=== PATIENT | female | born 1970 | race American Indian/Alaskan Native ===

== ENCOUNTER 2017-01-03 00:10 | Emergency (ER) | payer SELFPAY ==
--- NOTE | 2017-01-03 01:57 | XRay Report ---
FINAL REPORT PROCEDURE: XR ANKLE 2V RT TECHNIQUE: RIGHT ankle radiographs, AP and lateral views. HISTORY: fall, ankle pain COMPARISON: No prior studies are available for comparison. FINDINGS: Fracture (s) and/or Dislocation(s): None. Alignment: Normal. Joint space(s): Normal. Soft tissues: Normal. Bone mineralization: Normal. Foreign bodies: Normal. Calcaneal spurring: Large inferior spur IMPRESSION: No evidence of acute fracture or dislocation.
--- NOTE | 2017-01-03 01:58 | XRay Report ---
FINAL REPORT PROCEDURE: XR KNEE 1-2V RT TECHNIQUE: RIGHT knee radiographs, AP, lateral and oblique views. CPT 26977 HISTORY: fall COMPARISON: No prior studies are available for comparison. FINDINGS: Fracture (s) and/or Dislocation(s): None . Alignment: Normal . Joint space(s): Normal . Soft tissues: Normal . Bone mineralization: Normal . Foreign bodies: None . IMPRESSION: No evidence of an acute fracture or dislocation.
--- NOTE | 2017-01-03 01:59 | XRay Report ---
FINAL REPORT PROCEDURE: XR SHOULDER 1V RT TECHNIQUE: RIGHT shoulder radiograph, single frontal view. HISTORY: fall COMPARISON: No prior studies are available for comparison. FINDINGS: Fracture(s): None. Joint space(s): There is mild spur formation the acromioclavicular joint Soft tissues: Normal. Bone mineralization: Normal. Foreign bodies: None. IMPRESSION: No evidence of an acute fracture or dislocation. Mild arthritis
[2017-01-03] MEDS ORDERED: TORADOL IM ONE (03:21)
--- NOTE | 2017-01-03 03:27 | Emergency Department Report ---
HPI - General Chief Complaint: Fall Time Seen by Provider: 01/03/17 03:12 - HPI HPI: This is a 46-year-old female with no prior medical condition presents to ED complaining of right shoulder pain times today. Patient states she was walking down steps when she tripped and fell. Patient states she does not recall here her shoulder but it hurts. Patient describes pain as localized to her back shoulder region with known radiation elsewhere, throbbing in nature, 6 out of 10 intensity. Denies any head injury, loss of consciousness ED Past Medical Hx - Past Medical History Previous Medical History?: No - Surgical History Past Surgical History?: No - Social History Smoking Status: Never Smoker Substance Use Type: None - Medications Home Medications: Home Medications Medication Instructions Recorded Confirmed Last Taken Type Sulfamethoxazole/Trimethoprim 1 each PO BID #14 tablet 02/06/16 Unknown Rx [Bactrim DS TAB] Cyclobenzaprine [Flexeril] 10 mg PO QHS PRN #24 tablet 01/03/17 Unknown Rx Diclofenac Sodium 75 mg PO BID #14 tablet. 01/03/17 Unknown Rx ED Review of Systems ROS: Stated complaint: FALL/BODY PAIN Other details as noted in HPI Constitutional: denies: chills, fever Eyes: denies: eye pain, eye discharge, vision change ENT: denies: ear pain, throat pain, congestion Respiratory: denies: cough, shortness of breath, wheezing Cardiovascular: denies: chest pain, palpitations Endocrine: no symptoms reported Gastrointestinal: denies: abdominal pain, nausea, vomiting, diarrhea Genitourinary: denies: urgency, dysuria, discharge Musculoskeletal: denies: back pain, joint swelling, arthralgia Skin: denies: rash, lesions Neurological: denies: headache, weakness, paresthesias Psychiatric: denies: anxiety, depression Hematological/Lymphatic: denies: easy bleeding, easy bruising Physical Exam - Physical Exam Vital Signs: Vital Signs 01/03/17 00:56 Temperature 98.4 F Pulse Rate 81 Respiratory 18 Rate Blood Pressure 155/96 Blood Pressure 155/96 [Left] O2 Sat by Pulse 99 Oximetry Physical Exam: GENERAL: Alert and oriented x3, no apparent distress, Normal Gait, atraumatic. HEAD: Head is normocephalic and a-traumatic. NECK: Supple. Non edematous, No carotid bruits. No lymphadenopathy or thyromegaly. No C-spine tenderness LUNGS: Symetrical with respiration, No wheezing, no rales or crackles, CTAB. HEART: S1, S2 present, regular rate and rhythm without murmur, no rubs, no gallops. Non tender to palpation ABDOMEN: No organomegaly was noted,Positive bowel sounds, soft, and non- distended. . Nontender to palpation on all Quadrants, NO CVA tenderness. BACK: Full range of motion, no spinal tenderness, nontender to palpation. EXTREMITIES/MUSCULOSKELETAL: No cyanosis, clubbing, rash, lesions or edema. Full ROM bilaterally. UE/LE Pulses 2+ bilaterally. LE and UE 5+ strength bilaterally, all joints are intact bilaterally. Tenderness to palpation of the shoulder back muscles. Patient able to extend and flex right arm. No deformity seen NEUROLOGIC: The patient is cooperative with no focal neurologic deficits. Cranial nerves II through XII are grossly intact. Normal speech. Normal sensation in bilateral upper and lower extremities, No loss of sensation, No facial droop, Negative rhomberg. PSYCHIATRIC: Mood is congruent with affect, denies suicidal or homicidal ideations. SKIN: Warm and dry, No lesions, No ulceration or induration present. ED Course Vital Signs 01/03/17 00:56 Temperature 98.4 F Pulse Rate 81 Respiratory 18 Rate Blood Pressure 155/96 Blood Pressure 155/96 [Left] O2 Sat by Pulse 99 Oximetry ED Medical Decision Making - Medical Decision Making 46-year-old female presents to ED with myalgia of the is status post fall ED course: Patient received Toradol in ED. Vital signs are normal patient is in no acute distress Discussed with patient follow-up with primary care physician. Discussed the patient and take medications as prescribed. Patient has no neurological deficit. Patient is alert and oriented 3 and understands all instructions given. Discussed drowsiness effect of Flexeril makes her drowsy and not to operate machinery while taking flexeril Critical care attestation.: If time is entered above; I have spent that time in minutes in the direct care of this critically ill patient, excluding procedure time. ED Disposition Clinical Impression: Myalgia Shoulder arthralgia Qualifiers: Laterality: right Qualified Code(s): M25.511 - Pain in right shoulder Disposition: - TO HOME OR SELFCARE Is pt being admited?: No Does the pt Need Aspirin: No Condition: Stable Instructions: Musculoskeletal Pain (ED), Trigger Point Pain (ED) Prescriptions: Cyclobenzaprine [Flexeril] 10 mg PO QHS PRN #24 tablet PRN Reason: Muscle Spasm Diclofenac Sodium 75 mg PO BID #14 tablet. Referrals: PRIMARY CAREMD [Primary Care Provider] - 3-5 Days CHELSEY OLIVARES MD [Referring] - 3-5 Days [facility] [Outside] - 3-5 Days [facility] [Outside] - 3-5 Days Forms: Accompanied Note, Work/School Release Form(ED) Time of Disposition: 03:32
[2017-01-03] MEDS ORDERED: TORADOL ONE (03:29)
[2017-01-03 03:48] VITALS: BP 141/87
== END 2017-01-03 03:50 | disposition home or self-care (01) ==
LOC: ED 00:10
DX: M25.511 Pain in right shoulder (principal); M79.1 Myalgia; W01.0XXA Fall on same level from slipping, tripping and stumbling without subsequent striking against object, initial encounter; Y93.01 Activity, walking, marching and hiking; Y92.89 Other specified places as the place of occurrence of the external cause; Y99.9 Unspecified external cause status
CPT/HCPCS: 73020; 73560; 73600; 96372; 99283; J1885

== ENCOUNTER 2017-07-24 18:56 | Emergency (ER) | payer SELFPAY ==
--- NOTE | 2017-07-24 22:40 | Emergency Department Report ---
ED ENT HPI - General Chief complaint: Dental/Oral Stated complaint: SWELLING TO R SIDE OF JAW. Time Seen by Provider: 07/24/17 22:01 Source: patient Mode of arrival: Ambulatory Limitations: No Limitations - History of Present Illness Initial comments: 47-year-old female past medical history obesity presents with complaint of right -sided dental pain and slight facial swelling since yesterday. Patient denies pus or blood drainage from mouth. States she has a follow-up with a dentist on Wednesday. Speaking in full sentences and has no drooling or trismus noted on exam. No audible wheezing or stridor. MD complaint: tooth pain Location: tooth # 1 - Some dental pain and swelling Severity: moderate Severity scale (0 -10): 5 Quality: aching Consistency: intermittent Improves with: none Context- Dental: history of dental caries, poor dental care Associated Symptoms: toothache - Related Data Previous Rx's Medication Instructions Recorded Last Taken Type Sulfamethoxazole/Trimethoprim 1 each PO BID #14 tablet 02/06/16 Unknown Rx [Bactrim DS TAB] Cyclobenzaprine [Flexeril] 10 mg PO QHS PRN #24 tablet 01/03/17 Unknown Rx Diclofenac Sodium 75 mg PO BID #14 tablet. 01/03/17 Unknown Rx Acetaminophen/Codeine [Tylenol 1 tab PO Q6H PRN #12 tab 07/24/17 Unknown Rx /Codeine # 3 tab] Benzocaine [Orajel Liquid 20%] 1 ml MM Q6HR PRN #1 bottle 07/24/17 Unknown Rx Chlorhexidine Mouthwash [Peridex] 15 ml MM BID #1 bottle 07/24/17 Unknown Rx Clindamycin [Clindamycin CAP] 300 mg PO Q6H #28 capsule 07/24/17 Unknown Rx Ibuprofen [Motrin] 800 mg PO Q8HR PRN #20 tablet 07/24/17 Unknown Rx Allergies Allergy/AdvReac Type Severity Reaction Status Date / Time Penicillins Allergy Hives Verified 02/06/16 19:19 ED Dental HPI - General Chief complaint: Dental/Oral Stated complaint: SWELLING TO R SIDE OF JAW. Time Seen by Provider: 07/24/17 22:01 Source: patient Mode of arrival: Ambulatory Limitations: No Limitations - Related Data Previous Rx's Medication Instructions Recorded Last Taken Type Sulfamethoxazole/Trimethoprim 1 each PO BID #14 tablet 02/06/16 Unknown Rx [Bactrim DS TAB] Cyclobenzaprine [Flexeril] 10 mg PO QHS PRN #24 tablet 01/03/17 Unknown Rx Diclofenac Sodium 75 mg PO BID #14 tablet. 01/03/17 Unknown Rx Acetaminophen/Codeine [Tylenol 1 tab PO Q6H PRN #12 tab 07/24/17 Unknown Rx /Codeine # 3 tab] Benzocaine [Orajel Liquid 20%] 1 ml MM Q6HR PRN #1 bottle 07/24/17 Unknown Rx Chlorhexidine Mouthwash [Peridex] 15 ml MM BID #1 bottle 07/24/17 Unknown Rx Clindamycin [Clindamycin CAP] 300 mg PO Q6H #28 capsule 07/24/17 Unknown Rx Ibuprofen [Motrin] 800 mg PO Q8HR PRN #20 tablet 07/24/17 Unknown Rx Allergies Allergy/AdvReac Type Severity Reaction Status Date / Time Penicillins Allergy Hives Verified 02/06/16 19:19 ED Review of Systems ROS: Stated complaint: SWELLING TO R SIDE OF JAW. Other details as noted in HPI Constitutional: denies: chills, fever Eyes: denies: eye pain, eye discharge, vision change ENT: dental pain. denies: ear pain, throat pain Respiratory: denies: cough, shortness of breath, wheezing Cardiovascular: denies: chest pain, palpitations Endocrine: no symptoms reported Gastrointestinal: denies: abdominal pain, nausea, diarrhea Genitourinary: denies: urgency, dysuria, discharge Musculoskeletal: denies: back pain, joint swelling, arthralgia Skin: denies: rash, lesions Neurological: denies: headache, weakness, paresthesias Psychiatric: denies: anxiety, depression Hematological/Lymphatic: denies: easy bleeding, easy bruising ED Past Medical Hx - Past Medical History Previous Medical History?: No - Surgical History Past Surgical History?: No - Social History Smoking Status: Never Smoker Substance Use Type: None - Medications Home Medications: Home Medications Medication Instructions Recorded Confirmed Last Taken Type Sulfamethoxazole/Trimethoprim 1 each PO BID #14 tablet 02/06/16 Unknown Rx [Bactrim DS TAB] Cyclobenzaprine [Flexeril] 10 mg PO QHS PRN #24 tablet 01/03/17 Unknown Rx Diclofenac Sodium 75 mg PO BID #14 tablet.dr 01/03/17 Unknown Rx Acetaminophen/Codeine [Tylenol 1 tab PO Q6H PRN #12 tab 07/24/17 Unknown Rx /Codeine # 3 tab] Benzocaine [Orajel Liquid 20%] 1 ml MM Q6HR PRN #1 bottle 07/24/17 Unknown Rx Chlorhexidine Mouthwash [Peridex] 15 ml MM BID #1 bottle 07/24/17 Unknown Rx Clindamycin [Clindamycin CAP] 300 mg PO Q6H #28 capsule 07/24/17 Unknown Rx Ibuprofen [Motrin] 800 mg PO Q8HR PRN #20 tablet 07/24/17 Unknown Rx ED Physical Exam - General Limitations: No Limitations General appearance: alert, in no apparent distress - Head Head exam: Present: atraumatic, normocephalic - Eye Eye exam: Present: normal appearance, PERRL, EOMI - ENT ENT exam: Present: mucous membranes moist - Expanded ENT Exam Expanded Teeth exam: Present: dental tenderness # 1 - Dental Tenderness (right dental tenderness here) - Neck Neck exam: Present: normal inspection - Respiratory Respiratory exam: Present: normal lung sounds bilaterally. Absent: respiratory distress - Cardiovascular Cardiovascular Exam: Present: regular rate, normal rhythm. Absent: systolic murmur, diastolic murmur, rubs, gallop - GI/Abdominal GI/Abdominal exam: Present: soft, normal bowel sounds - Extremities Exam Extremities exam: Present: normal inspection - Back Exam Back exam: Present: normal inspection - Neurological Exam Neurological exam: Present: alert, oriented X3 - Psychiatric Psychiatric exam: Present: normal affect, normal mood - Skin Skin exam: Present: warm, dry, intact, normal color. Absent: rash ED Course Vital Signs 07/24/17 19:05 Temperature 98.9 F Pulse Rate 85 Respiratory 18 Rate Blood Pressure 163/99 O2 Sat by Pulse 99 Oximetry ED Medical Decision Making - Medical Decision Making A/P: dental cavities, toothache, dental abscess 1- Motrin when necessary, clindamycin course, Orajel when necessary, Peridex mouthwash daily basis, short course codeine when necessary 2- pt has dentist f/u on wednesday 2 days from now 3- no clinical signs of facial abscess, no Presley's angina, no induration or cellulitis of floor of mouth or tongue 4- patient able to tolerate by mouth before discharge 5-Advised patient that if she does not take antibiotics with follow-up with a dentist as soon as possible that a can result in potentially serious or dangerous infection to develop in jaw or face. Patient states that she understood these instructions. I advised patient to return to the ED for any persistent unrelenting nausea or vomiting fever or chills or headaches. Critical care attestation.: If time is entered above; I have spent that time in minutes in the direct care of this critically ill patient, excluding procedure time. ED Disposition Clinical Impression: Toothache, Dental cavities Disposition: TO HOME OR SELFCARE Is pt being admited?: No Does the pt Need Aspirin: No Condition: Stable Instructions: Dental Caries (ED), Toothache (ED), Dental Abscess (ED) Prescriptions: Acetaminophen/Codeine [Tylenol /Codeine # 3 tab] 1 tab PO Q6H PRN #12 tab PRN Reason: Pain Benzocaine [Orajel Liquid 20%] 1 ml MM Q6HR PRN #1 bottle PRN Reason: Toothache Chlorhexidine Mouthwash [Peridex] 15 ml MM BID #1 bottle Clindamycin [Clindamycin CAP] 300 mg PO Q6H #28 capsule Ibuprofen [Motrin] 800 mg PO Q8HR PRN #20 tablet PRN Reason: Pain Referrals: [facility] [Outside] - 3-5 Days Forms: Accompanied Note, Work/School Release Form(ED) Time of Disposition: 22:38
[2017-07-24] MEDS ORDERED: NORCO 5/325 PO ONE (22:42)
[2017-07-25 01:32] VITALS: BP 159/91
== END 2017-07-24 22:46 | disposition home or self-care (01) ==
LOC: ED 18:56
DX: K08.89 Other specified disorders of teeth and supporting structures (principal)
CPT/HCPCS: 99282